=== PATIENT | male | born 1965 | race Caucasian/White ===

== ENCOUNTER 2023-06-05 07:24 | Observation (INO) ==
--- NOTE | 2023-05-27 11:04 | PAT Medication Instructions ---
Medication Instructions Date of Service May 27, 2023 Home Medications aspirin 81 mg chewable tablet 81 mg PO QPM lisinopril 10 mg tablet 10 mg PO QPM multivitamin 1 tab PO QPM simvastatin 40 mg tablet 40 mg PO QPM calcium carbonate 200 mg calcium (500 mg) chewable tablet (Tums) 200 mg PO TID PRN gerd DO NOT take the morning of surgery calcium carbonate 200 mg calcium (500 mg) chewable tablet (Tums) 200 mg PO TID PRN gerd Take evening before surgery aspirin 81 mg chewable tablet 81 mg PO QPM (unless surgeon directed otherwise) lisinopril 10 mg tablet 10 mg PO QPM multivitamin 1 tab PO QPM simvastatin 40 mg tablet 40 mg PO QPM calcium carbonate 200 mg calcium (500 mg) chewable tablet (Tums) 200 mg PO TID PRN gerd (if needed) OTHERWISE NOTHING TO EAT OR DRINK AFTER MIDNIGHT Other Notes If you have any questions please call us at [phone] or [phone] or [phone] or [phone]
--- NOTE | 2023-05-28 11:35 | Anesthesiology Consultation ---
Date of Service May 28, 2023 Assessment & Plan (1) Encounter for pre-operative examination: Infectious disease screening: Per assessment on 05/28/23: Patient was Covid positive 04/03/23 (home test)- cough, fever > resolved. No known infectious disease contacts or current infectious disease symptoms. DOS 06/17/23. Chart Review Chart Review: Acceptable Risk for Surgery and Patient seen in Pre Admission Testing Teaching & Discussion Pre-Anesthesia Teaching/Discussion Notes: Instructed NPO after midnight before surgery,except medications with 15 cc of water. Medication instructions provided according to the PAT guidelines. History Surgery Operation Date: 06/17/23 13:00 Proposed Procedures p Right Total Knee Arthroplasty - Bobo Marroquin MD s Right 3rd Trigger Finger Release - Bobo Marroquin MD Height/Weight Height: 5 ft 11 in Weight: 98.8 kg Allergies Allergy/AdvReac Type Severity Reaction Status Date / Time lactose Allergy Severe Diarrhea Verified 05/26/23 16:55 hydrocodone AdvReac Nausea Verified 05/26/23 16:36 Medications Home Medications Medication Instructions Recorded Confirmed Last Taken aspirin 81 mg chewable tablet 81 mg PO QPM 05/04/23 05/26/23 Unknown lisinopril 10 mg tablet 10 mg PO QPM 05/04/23 05/26/23 Unknown multivitamin 1 tab PO QPM 05/04/23 05/26/23 Unknown simvastatin 40 mg tablet 40 mg PO QPM 05/04/23 05/26/23 Unknown calcium carbonate 200 mg calcium 200 mg PO TID PRN gerd 05/26/23 05/26/23 Unknown (500 mg) chewable tablet (Tums) Past Medical History Medical History Degenerative joint disease of knee Dyslipidemia GERD (gastroesophageal reflux disease) Gout History of COVID-19 04/03/23 (home test)- cough, fever > resolved Hypertension Lactose intolerance Right trigger finger Exercise / Class Metabolic Activity II 4-5 Yardwork/Stairs/Walk up hill (one FS- no CP, no SOB) Past Family History Family History Grandmother (Paternal) Colorectal cancer Brother Coronary heart disease Hypertension Father Dyslipidemia Dementia Parkinson disease Brother Dyslipidemia Hypertension Brother Dyslipidemia Brother No problems noted. Sister No problems noted. Other No family history of adverse response to anesthesia Denies family history of Ovarian cancer Prostate cancer Diabetes Clotting disorder Crohn's disease Depression Myocardial infarction Breast cancer Congenital kidney disease COPD (chronic obstructive pulmonary disease) Stroke Past Surgical History Surgical History Awareness under anesthesia Left LOGAN H/O total hip arthroplasty Left total hip arthroplasty March 2021 History of arthroscopic knee surgery Rx1, Lx5 History of lumbar laminectomy S/P tonsillectomy Status post right rotator cuff repair Past Anesthesia History No Family Hx of Anesthesia Complications and Other (*Awareness with Left LOGAN*) History of PONV No Hx of PONV and No Hx of Motion Sickness Social History Smoking Status: Never smoker Do You Dip or Chew Tobacco: No Hx Alcohol Use: Yes (social) Alcohol type: beer, wine and hard liquor alcohol intake frequency: a few times a week Hx Substance Use: No substance use type: does not use Review of Systems Patient denies chest pain, shortness of breath, dyspnea on exertion, fever, chills, palpitations. Physical Exam Vital Signs VITALS BP124/80 P 59 TEMP 98.8 SP02 97%RA RESP 18 PHYSICAL Full cervical extension range of motion. Full TMJ range of motion. TMD 3.5 finger breaths Mallampati Score 1 Dentition: intact, + crowns (molars, sides) Lungs: clear throughout to auscultation Cardiac: regular rate and rhythm, no murmurs noted Spine: normal Carotid arteries: negative bruit Extremities: no LE edema Lab Results Anesthesia Preop Results Results Anesthesia Widget: WBC 8.32 K/ul (4.8-10.8) 05/26/23 Hgb 16.2 g/dl (14.0-18.0) 05/26/23 Hct 47.1 % (42.0-52.0) 05/26/23 Plt 246 K/uL (130-400) 05/26/23 Na 139 mmol/L (136-145) 05/26/23 K 4.0 mmol/L (3.5-5.1) 05/26/23 Cl 107 mmol/L (98-107) 05/26/23 CO2 25 mmol/L (21-32) 05/26/23 BUN 17 mg/dl (6-23) 05/26/23 Creat 0.84 mg/dl (0.6-1.4) 05/26/23 Glucose Level 98 mg/dl (70-99(Fasting)) 05/26/23 PT 10.3 Seconds (9.0-12.0) 05/28/23 PTT 29 Seconds (21-31) 05/28/23 INR 0.9 (0.9-1.1) 05/28/23 TSH 1.908 uIu/ml (0.300-4.500) 05/26/23 HA1c 5.3 % (4.5-5.6) 05/26/23 Urine Color Dark Yellow 05/26/23 Urine Appearance Clear (Clear) 05/26/23 Urine pH 5.5 (4.5-7.5) 05/26/23 Urine Specific [place] 1.024 (1.000-1.030) 05/26/23 Urine Protein Negative (Negative) 05/26/23 Urine Glucose (UA) Negative (Negative) 05/26/23 Urine Ketones Negative (Negative) 05/26/23 Urine Blood 1+ (Negative) H 05/26/23 Urine Nitrite Negative (Negative) 05/26/23 Urine Bilirubin Negative (Negative) 05/26/23 Urine Urobilinogen Negative (Negative) 05/26/23 Urine Leukocyte Esterase Negative (Negative) 05/26/23 Urine WBC (Auto) 1-5 /hpf (0-5) 05/26/23 Urine RBC (Auto) 0-4 /hpf (0-4) 05/26/23 Urine Hyaline Casts (Auto) 1-5 /lpf (0-5) 05/26/23 Urine Epithelial Cells (Auto) 0-5 /lpf (0-5) 05/26/23 Urine Bacteria (Auto) Negative (Negative) 05/26/23 Blood Type B Positive 05/28/23 Antibody Screen NEGATIVE 05/28/23 Testing Electrocardiogram Date: 05/28/23 SR with first degree AVB at 64bpm. "Otherwise normal ECG" Chest X-Ray Date: 05/28/23 FINDINGS: Cardiac mediastinal and hilar silhouettes are within normal limits. No pneumothorax, pleural effusion or airspace consolidation. Bones appear grossly intact. Spondylitic spurring of the spine. IMPRESSION: No acute process.
[~2023-06-05 07:24] MED LIST: BUPIVACAINE 0.5 % 5 MG/1 ML PF 10ML VIAL ONE; ROPIVACAINE 0.5% 5 MG/ML 30 ML VIAL ONE
[2023-06-05] MEDS: ACETAMINOPHEN 500 MG TAB PO SCH ×2 (07:55→16:12)
[2023-06-05] MEDS: FAMOTIDINE 20 MG TAB PO SCH (07:55)
[2023-06-05] MEDS: Scopolamine 1 MG TDSY TD SCH (07:55)
[2023-06-05] MEDS: METOCLOPRAMIDE HCL 10 MG TABLET PO SCH (07:55)
[2023-06-05] MEDS: CeleBREX 200 MG CAP PO SCH (07:56)
[2023-06-05] MEDS: dexAMETHasone**PF** 10 MG/ML VIAL IV SCH (07:56)
[2023-06-05] MEDS: LR 60ML/HR IV SCH (07:56)
[2023-06-05] MEDS: LR 500ML BOLUS, THEN 15ML/HR IV SCH (08:15)
[2023-06-05] MEDS ORDERED: MIDAZOLAM HCL 1 MG/ML 2ML VIAL ONE (08:21)
[2023-06-05] MEDS ORDERED: ATROPINE SULFATE 0.1 MG/ML 10ML SYR IV PRN (08:27)
[2023-06-05] MEDS ORDERED: ePHEDrine sulfate 50 MG/ML AMP IV PRN (08:27)
[2023-06-05] MEDS ORDERED: ONDANSETRON INJ 2 MG/ML 2 ML VIAL IV PRN ×2 (08:27→15:23)
[2023-06-05] MEDS ORDERED: fentaNYL citrate PF 100 MCG/2 ML VIAL IV PRN (08:27)
[2023-06-05] MEDS ORDERED: fentaNYL citrate PF 100 MCG/2 ML VIAL ONE (08:30)
--- NOTE | 2023-06-05 08:46 | History & Physical Bridge Note ---
Date of Service June 05, 2023 History & Physical Bridge Note I have examined the patient, reviewed the History & Physical and in the interval since the performance of the History & Physical I have noted the following changes of clinical significance: no changes noted
[2023-06-05] MEDS ORDERED: PROPOFOL IV EMULSION 10 MG/ML 20 ML VIAL IV ONE ×2 (08:50→10:52)
[2023-06-05] MEDS: ceFAZolin 2000MG 2,000 MG/15 ML SYR IV SCH ×2 (09:19→18:23)
[2023-06-05] MEDS ORDERED: ePHEDrine sulfate 50 MG/5 ML SYR ONE (09:37)
[2023-06-05] MEDS: VANCOMYCIN HCL 1000MG/20ML VIAL ONE (10:14)
[2023-06-05] MEDS: ROPIV 0.5% 246mg, Ketorolac 30mg, EPINEPHrine 0.5mg in NSS INFIL SCH (10:14)
[2023-06-05] MEDS: LIDOCAINE 1% LOCAL 20 ML VIAL ONE (10:14)
[2023-06-05] MEDS: TRANEXAMIC ACID 1,000 MG **IV Intra-op IV SCH (10:36)
--- NOTE | 2023-06-05 11:37 | Operative Report ---
PG Post Operative Report Pre & Post Diagnosis Operation Date: 06/05/23 08:50 Pre-Op Diagnosis: Right Knee Degenerative Joint Disease Right long trigger finger Post-Op Diagnosis: Right Knee Degenerative Joint Disease Right long trigger finger I identified the patient and participated in the time-out.: Yes Procedure Operation Date: 06/05/23 08:50 Actual Procedures p Right Total Knee Arthroplasty - Bobo Marroquin MD s Right 3rd/long trigger Finger Release(Right) - Bobo Marroquin MD Surgeon Bobo Marroquin MD In Store Marketer Harshil Kolhi PA-C Estimated Blood Loss 50 Findings Consistent with Post-Op Diagnosis Operative findings with advanced tricompartment DJD. He had grade 4 disease in all 3 compartments. Moderate-sized joint effusion. About a 10 degree flexion contracture. 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 He has had multiple knee arthroscopies in the past and extensive conservative treatment for knee arthritis. He failed elective management. The right knee was bothering more than the left. He elected proceed with right total knee replacement. Over the past several months he developed triggering and locking of his long finger. He elected proceed with trigger finger release at the same time. Description of Procedure Operative implants consist of: 1 Biomet Vanguard size 70 right posterior stabilized femoral component. 2. Biomet size 79 tibial tray. 3. 10 mm post stabilized polyethylene insert. 4. 34 x 8-1/2 all poly patella. Patient was taken the operating, identified, placed on the operating table in the supine position. All contact areas were appropriately padded. IV antibiotics 5 by anesthesia team. A spinal anesthetic and adductor canal block had provided in the holding area. Right forearm tourniquet was placed. Attention was first drawn to the right arm. The right upper extremity was then prepped and draped in usual sterile fashion. The right arm was elevated exsanguinated with use of an Esmarch and a turn was placed at 250 mmHg. A slightly oblique incision was made at the base of the long finger in the distal palmar crease. Blunt show scalp through subcutaneous tissue directly down to the flexor tendon sheath. Great care was taken to protect the digital nerves and vascular structures at all times. The A1 hai was identified and transected use of scissors. The finger was taken through a active and active assist range of motion is no further catching or locking. The tourniquet was then let down for tourniquet time 5 minutes. Hemostasis assured use electrocautery. The wound was once again irrigated and then the skin was closed with 4-0 nylon suture in a horizontal mattress fashion. The hand was then cleaned and dried and a sterile dressing composed Xeroform, 4 fours, milly rile cast padding and an Juan Antonio bandage were applied. Attention drawn to the right knee. A right thigh tent was then placed. The right lower extremity was then prepped and draped in usual sterile fashion. The right leg was then elevated and exsanguinated with use of an Esmarch and a turn was placed at 300 mmHg. The anterior approach to the right knee was then performed to longitudinal incision centered over the patella. Sharp dissection carried through subcutaneous tissue down the extensor mechanism. A medial parapatellar arthrotomy incision was made. Some subperiosteal dissection was carried out medially. The fat pad was dissected from Neath patella tendon. Lateral patellofemoral ligament was released. Patella subluxated laterally and the knee was flexed with the osteophytes taken on distal femur. The ACL and PCL were then released from distal femur the tibia subluxated anteriorly. The external treatment line jig was then placed the interface the tibia and adjusted 14 mm medially. Proximal tibial cut was made to remove out that 3 mm of bone from the medial side. He did not have a lot of wear of the medial tibial plateau. The tibia sized to a size 79. Attention drawn the femur. The distal femur was then with a sharp drill. Intramedullary canal was suction. A right 6 degree valgus cutting guide was placed. The distal femoral cutting block was pinned in place. Distal femoral cut was made take an additional 3 mm of bone off distal femur. The femur was then sized to a size 70. The AP cutting block was pinned parallel to the epicondylar axis which was 3 degrees external rotation. Anterior cut, anterior chamfer, posterior cut, posterior chamfer cuts were made. The box cutting guide was placed in just slight lateral and the box cut was made. The knee was flexed. The remnants of the medial and lateral menisci were excised. The osteophyte taken off the posterior aspect of femur. A trial femoral component was placed for the tibial tray was pinned Ma xima X rotation and the drill and stem punch used to create defect in proximal tibia for the tibial tray. Knee was then trialed and the 10 mm insert fit most appropriately. Attention drawn the patella. The patella was cleaned of all soft tissue. Patella thickness measured 24 mm in thickness was cut down to 15. Sized to a size 34 patella. The lug holes were drilled for 34 patella. The lateral osteophytes removed. Patella button was placed. Knee was taken through range of motion patella tracked nicely with no thumbs test. Attention drawn to place the permanent components. Nupathe all trial components were removed. Bone plug was placed in the distal femur limit blood loss. A double batch [place] G cement was mixed. I did add an additional gram of vancomycin due to his history of open surgery in this knee in the past. A Biomet Vanguard size 70 right Po stabilized femoral component, size 79 tibial tray, a 10 mm post stabilized polyethylene insert, and a 34 x 8 and half all po ly patella then cemented in place. The knee was brought out into full extension till cement hardened. Final cement check was then performed. The pericapsular tissues were injected with a joint mix. The patient did receive 1 g tranexamic acid. The tourniquet was then let down for final tourniquet time of 59 minutes. Hemostasis assured use electrocautery. Extensor Meclomen closed with combina tion 1 PDS suture #1 Vicryl suture in a [id number] fashion. Extensor Meclomen checked found to be intact the subcutaneous tissue then closed with 2 Dexon suture in buried fashion skin was closed skin winnie. Patient then transferred to the recovery in stable condition. The patient tolerated the procedure well and there were no complications. Harshil Kohli, my physician assistant guest services manager, was present for the entire procedure. His assistance was essential and required for appropriate patient positioning, prepping and draping, surgical exposure, performing the technical details of the operation, placement the implants, closure of the wound, and placement of the sterile bandage. I attest to the content of the Intraoperative Record and any orders documented therein. Any exceptions are noted below.
--- NOTE | 2023-06-05 12:02 | XRay Report ---
RIGHT KNEE 2 VIEWS History: Right total knee arthroplasty. Degenerative arthritis. Postop. FINDINGS: The patient is status post a right total knee arthroplasty. The hardware is intact. No frac ture or dislocation. Skin winnie are in place. IMPRESSION: Right total knee arthroplasty. No evidence for hardware complication. ACT 112: Negative or not required by law. Electronically signed by: Chele Gallo M.D. 06/05/2023 12:01 PM
--- NOTE | 2023-06-05 13:01 | Anesthesiology Progress Note ---
Date of Service June 05, 2023 Anesthesia Post Procedure Vital Signs Vital Signs: Temp Pulse Pulse Resp BP BP Pulse Ox 06/05/23 12:40 83 15 112/66 93 06/05/23 12:30 93 H 15 115/70 93 06/05/23 12:20 90 17 113/68 91 06/05/23 12:10 97.9 F 89 20 116/64 93 06/05/23 12:00 90 22 119/66 93 06/05/23 11:50 90 16 115/70 96 06/05/23 11:40 86 18 112/61 96 06/05/23 11:30 98.2 F 90 20 133/57 L 94 06/05/23 07:40 98.6 F 93 H 20 138/86 97 O2 Del Method O2 Flow Rate 06/05/23 12:40 Nasal Cannula 2 06/05/23 12:30 Room Air 06/05/23 12:20 Room Air 06/05/23 12:10 Room Air 06/05/23 12:00 Room Air 06/05/23 11:50 Oxymask 8 06/05/23 11:40 Oxymask 8 06/05/23 11:30 Oxymask 8 06/05/23 07:40 Room Air Pain Intensity Right Knee: Pain Intensity: 5 Transfer of Care Handoff Completed per policy Notes Mental Status: alert / awake / arousable and participated in evaluation Patient Amnestic to Procedure: Yes Nausea / Vomiting: adequately controlled Pain: adequately controlled Airway Patency, RR, SpO2: stable & adequate BP & HR: stable & adequate Hydration State: stable & adequate Neuraxial Anesthesia: was administered and sensory block is resolving Anesthetic Complications: no major complications apparent and Pt Satisfied with anesthetic care
[2023-06-05] MEDS ORDERED: NALOXONE HCL 0.4 MG/1 ML VIAL/CARP IV PRN (15:23)
[2023-06-05] MEDS ORDERED: METOCLOPRAMIDE HCL INJ 5 MG/ML 2 ML VIAL IV PRN (15:23)
[2023-06-05] MEDS ORDERED: CALCIUM CARBONATE 500 MG CHEWABLE TAB PO PRN (15:23)
[2023-06-05] MEDS ORDERED: MAGNESIUM HYDROXIDE SUSP 30 ML UDC PO PRN (15:23)
[2023-06-05] MEDS ORDERED: ALUMINUM/MAGNESIUM SUSP 30 ML UDC PO PRN (15:23)
[2023-06-05] MEDS ORDERED: diphenhydrAMINE Capsule 25 MG CAP PO PRN (15:23)
[2023-06-05] MEDS ORDERED: bisacodyL 10 MG SUPP PR PRN (15:23)
[2023-06-05] MEDS: ORTHO JOINT ANESTHETIC ONE (15:28)
[2023-06-05] MEDS: SODIUM CHLORIDE 0.9% 1,000 ML IV SCH (16:11)
[2023-06-05] MEDS: KETOROLAC 30 MG/ML VIAL IV SCH (16:12)
[2023-06-05] MEDS: Scopolamine CHECK PATCH PLACEMENT SCH (16:12)
[2023-06-05] MEDS: TRANEXAMIC ACID / 0.7% NACL 1,000 MG/100 ML BAG IV SCH (17:07)
[2023-06-05] MEDS: ASCORBIC ACID 500 MG TAB PO SCH (18:23)
[2023-06-05] MEDS: HYDROmorphone HCL 2 MG TAB PO PRN (20:37)
[2023-06-05] MEDS: ASPIRIN 81 MG ECTAB PO SCH (20:40)
[2023-06-05] MEDS: lisinopril 10 MG TAB PO SCH (20:40)
[2023-06-05] MEDS: SIMVASTATIN 40 MG TAB PO SCH (20:40)
[2023-06-05] MEDS: DOCUSATE SODIUM 100 MG CAP PO SCH (20:41)
[2023-06-05] MEDS: SENNA 8.6 MG TAB PO SCH (20:42)
[2023-06-05] MEDS ORDERED: NON-FORMULARY MEDICATION (Multivitamin tablet) PO SCH (21:00)
[2023-06-05] MEDS ORDERED: SENNA 8.6 MG TAB PO SCH (21:00)
[2023-06-06] MEDS: HYDROmorphone INJ 0.5 MG/0.5 ML SYR IV PRN (04:06)
[2023-06-06 06:25] LABS: Hematocrit (blood only) 36.7 % (42.0-52.0); Hemoglobin 12.3 g/dl (14.0-18.0); Mean Corpuscular Hemoglobin 28.8 pg (25.0-34.0); Mean Corpuscular Hgb Conc 33.5 g/dL (32.0-36.0); Mean Corpuscular Volume 85.9 fL (80.0-100.0); Mean Platelet Volume 9.7 fL (9.4-12.4); Platelet Count 204 K/uL (130-400); RDW Coefficient of Variation 13.4 % (11.5-14.5); RDW Standard Deviation 41.2 fL (36.4-46.3); Red Blood Count 4.27 M/uL (4.70-6.10); White Blood Count 16.33 K/ul (4.8-10.8)
[2023-06-06 06:38] LABS: BUN Creatinine Ratio 20.6 (10-20); Calcium 8.6 mg/dl (8.6-10.3); Creatinine Clr Calc Pharmacy 93.4 ml/min; Est GFR (African American) 92.8 ml/min; Est GFR (Non-African American) 80.1 ml/min; Potassium 4.4 mmol/L (3.5-5.1)
--- NOTE | 2023-06-06 07:42 | Surgery Progress Note ---
Date of Service June 06, 2023 Assessment & Plan (1) Status post right knee replacement: Plan: 87-year-old gentleman postop day 1 from right knee replacement right trigger finger release doing well. Pain is controlled. He is neurologically intact. Open to go home today. Plan: 1. DVT prophylaxis including thigh-high teds, SCDs, aspirin twice a day. 2. PT/OT. Weight-bear as tolerated. Right total knee protocol. 3. Pain control doing okay with current pain regimen. 4 disposition plan to discharge to home with some home health later today if does okay in therapy (2) Right trigger finger: Admission and Anticipated Discharge Date Admission Date: June 05, 2023 Subjective 57-year-old gentleman postop day 1 from a right total knee replacement and right long trigger finger release. He is doing well. Did not get much sleep last night. No chest pain or shortness of breath. Pains been pretty well- controlled. To take some pain medicine doing better this morning. He is hoping to go home today. Physical Exam Physical Exam: Physical examination the right hand reveals dressing clean dry and intact he can flex extend his fingers appropriately. He is neurologically intact. Examination of the right knee reveals dressing clean dry and intact he can dorsiflex and plantarflex his foot appropriately. He is neurologically intact. Respiratory: normal respiratory effort, lungs clear to auscultation Cardiovascular: RRR, no murmur, no edema Gastrointestinal (Abdomen): normal bowel sounds, soft, nontender, no hepat osplenomegaly Results & Data Vital Signs (Past 12 Hours) Vital Signs Temp Pulse Resp BP Pulse Ox O2 Del Method 06/06/23 02:44 36.5 C 79 18 119/69 95 Room Air 06/05/23 22:36 36.7 C 89 18 102/58 L 94 Room Air Laboratory Results Hemoglobin is 12.3. Hematocrit 36.7. Electrolytes are stable. PG Care Time/CCT Total # of Minutes Spent Total Time Spent with Patient: Total time spent is greater than 50% in coordination of care (as documented) at patient's floor/unit and/or counseling patient: Coding Level of Care Code 31576 Post Operative Follow-Up Diagnoses Status post right knee replacement Z96.651 Right trigger finger M65.30
[2023-06-06] MEDS: MULTIVITAMIN TAB PO SCH (08:34)
[2023-06-06] MEDS: TAMSULOSIN HCL 0.4 MG CAP PO SCH (08:34)
[2023-06-06] MEDS: dexAMETHasone 10 MG in SYRINGE 0 ML IV SCH (08:36)
--- NOTE | 2023-06-09 06:33 | Discharge Summary ---
Date of Service June 09, 2023 Discharge Data Procedures Performed Operation Date: 06/05/23 08:50 Actual Procedures p Right Total Knee Arthroplasty - Bobo Marroquin MD s Right 3rd Trigger Finger Release(Right) - Bobo Marroquin MD Hospital Course (1) Status post right knee replacement: This is a 57 year old patient admitted on 06/05/23 and underwent total knee arthroplasty and right long finger trigger finger release. He tolerated the procedure well and there were no complications. Transferred to the PACU post op and later to the orthopedic floor for further care. He was given ancef for antibiotic prophylaxis. He was also given ROCKY stockings, SCDs, and aspirin for DVT prophylaxis. Hemoglobin, hematocrit, and vital signs were monitored during his hospital stay and remained stable. Did not require any blood transfusions. There were no complications during his hospital stay. By post op day #1 the patient was tolerating a regular diet, pain was reasonably controlled with oral pain medicine, and he was participating in physical therapy. On post op day #1 the patient was discharged home and set up with home health care. He was given printed discharge instructions including prescriptions for extra strength tylenol, aspirin, cefadroxil, ketorolac, zofran, senokot, flomax, and hydromorphone. Keep dressing on his hand clean, dry, and intact. Continue physical therapy, weight bearing as tolerated. Continue ROCKY stockings. Follow up approximately 2 weeks post op or sooner if there are problems or concerns. Coding Level of Care Code None Diagnoses Status post right knee replacement Z96.651
== END 2023-06-06 10:42 | disposition home health service (06) ==
LOC: ASU 07:24 → 3E 07:24
DX: M65.331 Trigger finger, right middle finger; K21.9 Gastro-esophageal reflux disease without esophagitis; Z79.82 Long term (current) use of aspirin; Z86.16 Personal history of COVID-19; M17.11 Unilateral primary osteoarthritis, right knee; Z79.899 Other long term (current) drug therapy; Z88.5 Allergy status to narcotic agent; I10 Essential (primary) hypertension